=== PATIENT | male | born 1990 | race Caucasian/White ===

== ENCOUNTER 2023-06-16 13:31 | Emergency (ER) | payer SELFPAY ==
[~2023-06-16] VITALS: Ht 177.8 cm; Wt 78.5 kg
[2023-06-16 14:07] VITALS: BP_SYST 142; PULSE 80; RESP 20; TEMP 98.4; O2SAT 99
[2023-06-16] MEDS ORDERED: MUPIROCIN 2% TOPICAL OINTMENT 22 GM TP ONE (15:15)
[2023-06-16] MEDS ORDERED: SULF1TAB48 PO ×2 (15:18→19:08)
[2023-06-16] MEDS ORDERED: BACITRACIN 1 GM OINT TP ONE (15:30)
[2023-06-16 16:00] VITALS: BP_SYST 142; PULSE 80; RESP 20; TEMP 98.4; O2SAT 99
== END 2023-06-16 16:00 | disposition home or self-care (01) ==
LOC: SED 13:31
DX: L03.114 Cellulitis of left upper limb (principal); M25.422 Effusion, left elbow; R21 Rash and other nonspecific skin eruption; Z79.899 Other long term (current) drug therapy
CPT/HCPCS: 99283